=== PATIENT | female | born 1975 ===

== ENCOUNTER 2019-08-29 14:41 | Emergency (ER) | payer SELFPAY ==
--- NOTE | 2019-08-29 14:57 | ER Document Report ---
ED Medical Screen (RME) - General Chief Complaint: Low Blood Pressure Stated Complaint: MEDICAL CLEARANCE Time Seen by Provider: 08/29/19 14:49 - HPI Notes: 08/29/19 14:56 44-year-old female presents to the emergency room from the [facility] facility for low blood pressure and possible dehydration. Patient states she is detoxing off of heroin and cocaine which she has injected and started yesterday. Reports chills, body aches "feeling awful". Patient states this is what she typically feels when she is detoxing off the substances. Denies any fevers chills, chest pain shortness of breath nausea vomiting or diarrhea. I have greeted and performed a rapid initial assessment of this patient. A comprehensive ED assessment and evaluation of the patient, analysis of test results and completion of the medical decision making process will be conducted by additional ED providers. PHYSICAL EXAMINATION: GENERAL: Well-appearing, well-nourished and in no acute distress. CV: s1, s2 regular LUNGS: No respiratory distress Past Medical History - Social History Frequency of alcohol use: None Drug Abuse: Cocaine, Heroin Physical Exam - Vital signs Vitals: Temp 97.6 F 08/29/19 14:51 Course - Vital Signs Vital signs: Temp Pulse Resp BP Pulse Ox 97.6 F 08/29/19 14:51
[2019-08-29 15:35] LABS: APPEARANCE,URINE SLIGHTLY-CLOUDY; BILIRUBIN,URINE NEGATIVE (NEGATIVE); COLOR,URINE YELLOW; GLUCOSE, URINE NEGATIVE (NEGATIVE); KETONES,URINE NEGATIVE (NEGATIVE); LEUKOCYTE ESTERASE,URINE NEGATIVE (NEGATIVE); NITRITE,URINE NEGATIVE (NEGATIVE); PROTEIN,URINE NEGATIVE (NEGATIVE)
--- NOTE | 2019-08-29 15:41 | RADIOLOGY REPORT (SQ) ---
EXAM DESCRIPTION: CHEST SINGLE VIEW IMAGES COMPLETED DATE/TIME: 08/29/2019 3:32 pm REASON FOR STUDY: LH, dizziness, cough COMPARISON: None. EXAM PARAMETERS: NUMBER OF VIEWS: One view. TECHNIQUE: An AP view of the chest was obtained. RADIATION DOSE: NA LIMITATIONS: None. FINDINGS: LUNGS AND PLEURA: No consolidation, pleural effusion or pneumothorax. MEDIASTINUM AND HILAR STRUCTURES: No mediastinal or hilar contour abnormality. HEART AND VASCULAR STRUCTURES: The cardiac silhouette and pulmonary vasculature are within normal nieves its. BONES: No acute findings. HARDWARE: None in the chest. OTHER: No other finding. IMPRESSION: No acute cardiopulmonary process. TECHNICAL DOCUMENTATION: JOB ID: [id number] 2010 [employer]- All Rights Reserved Reading location - IP/workstation name: [email or web address]
[2019-08-29 15:51] LABS: URINE AMPHETAMINES SCREEN NEGATIVE; URINE BARBITURATES SCREEN NEGATIVE; URINE BENZODIAZEPINES SCREEN NEGATIVE; URINE MARIJUANA (THC) SCREEN NEGATIVE; URINE METHADONE SCREEN NEGATIVE; URINE PHENCYCLIDINE SCREEN NEGATIVE
[2019-08-29 15:58] LABS: URINE COCAINE SCREEN UNCONFIRMED POSITIVE
[2019-08-29 15:59] LABS: ABSOLUTE BASOPHILS # (AUTO) 0.1 10^3/uL (0.0-0.2); ABSOLUTE EOSINOPHILS # (AUTO) 0.4 10^3/uL (0.0-0.6); ABSOLUTE LYMPHOCYTES (AUTO) 2.1 10^3/uL (0.5-4.7); ABSOLUTE MONOCYTES (AUTO) 0.8 10^3/uL (0.1-1.4); ABSOLUTE NEUT (AUTO) 4.2 10^3/uL (1.7-8.2); BASOPHILS % (AUTO) 1.3 % (0-2); EOSINOPHILS % (AUTO) 5.1 % (0-6); HEMATOCRIT 34.3 % (36.0-47.0); HEMOGLOBIN 11.6 g/dL (12.0-15.5); LYMPHOCYTES % (AUTO) 27.5 % (13-45); MEAN CORPUSCULAR HEMOGLOBIN 27.7 pg (27.0-33.4); MEAN CORPUSCULAR HGB CONC 33.8 g/dL (32.0-36.0); MEAN CORPUSCULAR VOLUME 82 fl (80-97); MONOCYTES % (AUTO) 10.4 % (3-13); PLATELET COUNT 310 10^3/uL (150-450); RED BLOOD COUNT 4.19 10^6/uL (3.72-5.28); RED CELL DISTRIBUTION WIDTH 14.9 % (11.5-14.0); SEGMENTED NEUTROPHILS % (AUTO) 55.7 % (42-78); TOTAL CELLS COUNTED % (AUTO) 100 %; WHITE BLOOD COUNT 7.5 10^3/uL (4.0-10.5)
[2019-08-29] MEDS ORDERED: NORMAL SALINE 1000 ML 1,000 ML IV ONE ×3 (16:02→16:51)
[2019-08-29] MEDS ORDERED: ONDANSETRON HCL INJ/PF 4 MG/2 ML SDV IV ONE ×2 (16:02→16:03)
[2019-08-29 16:17] LABS: ALBUMIN 3.1 g/dL (3.5-5.0); ALKALINE PHOSPHATASE 79 U/L (38-126); ASPARTATE AMINO TRANSFERASE 96 U/L (14-36); BILIRUBIN,TOTAL 0.7 mg/dL (0.2-1.3); BLOOD UREA NITROGEN 9 mg/dL (7-20); CALCIUM 8.2 mg/dL (8.4-10.2); CARBON DIOXIDE 27 mmol/L (22-30); GLUCOSE 83 mg/dL (75-110); TOTAL PROTEIN 5.9 g/dL (6.3-8.2)
--- NOTE | 2019-08-29 16:18 | ER Document Report ---
ED General - General Chief Complaint: Low Blood Pressure Stated Complaint: MEDICAL CLEARANCE Time Seen by Provider: 08/29/19 14:49 - HPI Notes: Patient is a 44-year-old female who presents to the emergency department for evaluation from [facility]. She presented there to help with her substance abuse issues, namely heroin and cocaine. She states she last used heroin last night. She both injects and snorts. She states she generally feels poorly, denies any dizziness. She just feels nauseated. No vomiting. No diar alise. She states she has felt this way in the past when coming off of opiates. - Related Data Allergies/Adverse Reactions: No Known Allergies Allergy (Unverified 08/29/19 14:56) Past Medical History - General Information source: Patient - Social History Smoking Status: Current Every Day Smoker Frequency of alcohol use: None Drug Abuse: Cocaine, Heroin Family History: Reviewed & Not Pertinent Patient has homicidal ideation: No Review of Systems - Review of Systems Constitutional: See HPI Gastrointestinal: See HPI -: Yes All other systems reviewed and negative Physical Exam - Vital signs Vitals: Temp Pulse Resp BP Pulse Ox 97.6 F 56 L 14 107/71 99 08/29/19 14:51 08/29/19 14:51 08/29/19 14:51 08/29/19 14:51 08/29/19 14:51 - Notes Notes: This is a disheveled, frail appearing 44-year-old female who appears much older than her stated age, no acute distress. She is very guarded, hesitant to answer any questions. Diminished eye contact. Vital signs reviewed, please refer to chart. Head is normocephalic, atraumatic. Pupils equal round, reactive to light. Neck is supple without meningismus. Heart is regular rate and rhythm. Lungs are clear to auscultation bilaterally. Abdomen is soft, nontender, normoactive bowel sounds throughout. Extremities without cyanosis, clubbing. Posterior calves are nontender. Peripheral pulses are equal. Skin is warm and dry. She has a sequelae of recent IV drug abuse on her left upper extremity without any signs of infection, induration, fluctuance. Patient is awake, alert, neurological exam is nonfocal. Course - Re-evaluation Re-evalutation: 08/29/19 16:18 Patient presents to the emergency department for evaluation. Her blood pressure was borderline, she has had nausea and decreased p.o. intake. Her laboratory investigations were ordered as through triage. She is stable at this time. We will continue to monitor. 08/29/19 18:30 Patient was given IV fluids, 2 L total. She is feeling somewhat improved. She is also given Zofran. Her AST and ALT are mildly elevated. She has mild hyponatremia consistent with dehydration. The patient states she does want to g o back to [facility] for further substance abuse treatment. She is stable, we will discharge her back to [facility] for ongoing care. - Vital Signs Vital signs: Temp Pulse Resp BP Pulse Ox 98.6 F 47 L 16 91/52 L 96 08/29/19 18:45 08/29/19 18:45 08/29/19 18:45 08/29/19 18:45 08/29/19 18:45 - Laboratory Result Diagrams: 08/29/19 15:45 08/29/19 15:45 Laboratory results interpreted by me: 08/29/19 08/29/19 08/29/19 15:06 15:45 15:45 Hgb 11.6 L Hct 34.3 L RDW 14.9 H Sodium 136.9 L Chloride 108 H Anion Gap 2 L Calcium 8.2 L AST 96 H ALT 88 H Total Protein 5.9 L Albumin 3.1 L Urine Urobilinogen 4.0 H Salicylates < 1.0 L Acetaminophen < 10 L - EKG Interpretation by Me Additional EKG results interpreted by me: 08/29/19 18:31 Sinus mechanism with rate of 60 bpm. Normal axis and intervals. No acute ST changes concerning for ischemia or infarction. Discharge - Discharge Clinical Impression: Generalized weakness, Dehydration, Polysubstance abuse, Nausea, Abnormal liver enzymes Condition: Stable Disposition: HOME, SELF-CARE Instructions: Cocaine Abuse ([facility]), Narcotic Abuse ([facility]), Weakness ([facility]) Additional Instructions: You have been given IV fluids and nausea medication today. Your labs revealed mildly elevated liver enzymes, which should be followed up as an outpatient, but do not necessitate emergent evaluation. Otherwise your sodium was slightly low, consistent with dehydration. Rest, stay of hydrated with small, frequent sips of fluids. Follow-up with primary care next week. Otherwise you are being discharged back to the care of [facility] for further substance abuse treatment.
[2019-08-29 16:19] LABS: ACETAMINOPHEN < 10 ug/mL (10-30); ALCOHOL < 10 mg/dL (NONE DETECTED); SALICYLATE < 1.0 mg/dL (2.0-20.0)
[2019-08-29 16:21] LABS: CHLORIDE 108 mmol/L (98-107)
[2019-08-29 16:25] LABS: ANION GAP 2 (5-19)
--- NOTE | 2019-08-29 16:56 | EKG REPORT ---
SEVERITY:- ABNORMAL ECG - SINUS RHYTHM Q WAVES IN V2, NEED TO R/O OLD ANTEROSEPTAL [place]. : Confirmed by: Wellington Wallis MD 29-Aug-2019 16:56:01
[2019-08-29 18:50] VITALS: BP 91/52
== END 2019-08-29 19:13 | disposition home or self-care (01) ==
LOC: ER 14:41
DX: E86.0 Dehydration (principal); E87.1 Hypo-osmolality and hyponatremia; R53.1 Weakness; F14.10 Cocaine abuse, uncomplicated; F11.10 Opioid abuse, uncomplicated; R74.8 Abnormal levels of other serum enzymes; R74.0 Nonspecific elevation of levels of transaminase and lactic acid dehydrogenase [LDH]; F17.200 Nicotine dependence, unspecified, uncomplicated; R11.0 Nausea
CPT/HCPCS: 93005; 99285; 96361; 96374; 36415; 80307 ×4; 85025; 81025; 80053; 81001; 71045; 93010; J2405; J7030